=== PATIENT | female | born 1950 | race Caucasian/White ===

== ENCOUNTER 2021-10-24 18:21 | Emergency (ER) | payer MEDICARE, OTHER | END 2021-10-24 18:37 | disposition left against medical advice (07) | LOC: ER1 18:21 | DX: Z53.21 Procedure and treatment not carried out due to patient leaving prior to being seen by health care provider (principal) ==

== ENCOUNTER → 2022-04-20 | Outpatient (CLI) | payer MEDICARE, OTHER | LOC: KOH-I 14:59 | DX: M51.16 Intervertebral disc disorders with radiculopathy, lumbar region (principal) | CPT/HCPCS: 72131 ==

== ENCOUNTER 2022-06-13 10:03 | Emergency (ER) | payer MEDICARE, OTHER ==
[2022-06-13 11:08] LABS: HEMOGLOBIN 12.9 gm/dl (12.3-15.3); RED BLOOD COUNT 4.08 M/UL (4.00-5.10); WHITE BLOOD COUNT 14.2 K/UL (4.5-11.0)
[2022-06-13 11:40] LABS: BUN/CREATININE RATIO 14 (0-10)
[2022-06-13] MEDS ORDERED: CYCLOBENZAPRINE10 MG PO (14:39)
[2022-06-13] MEDS ORDERED: HYDROCODON-ACE1 EAC4 PO (14:39)
== END 2022-06-13 15:14 | disposition home or self-care (01) ==
LOC: ER1 10:03
PROVIDERS: Emergency Medicine
DX: M54.50 Low back pain, unspecified (principal); G89.29 Other chronic pain; E11.9 Type 2 diabetes mellitus without complications; I10 Essential (primary) hypertension; Z95.0 Presence of cardiac pacemaker
CPT/HCPCS: 70450; 71045; 80048; 84484; 85025; 86140; 99284